=== PATIENT | female | born 1995 | race Caucasian/White ===

== ENCOUNTER 2019-06-05 00:39 | Inpatient (IN) | payer MEDICAID ==
[2019-06-05] MEDS ORDERED: Carboprost Tromethamine 250 MCG/1 ML Amp IM PRN (15:45)
[2019-06-05] MEDS ORDERED: Nalbuphine 10 MG/1 ML Vial IVPUSH PRN (15:45)
[2019-06-05] MEDS ORDERED: Sodium Chloride 0.9% 10 ML Syringe FLUSH PRN (15:45)
[2019-06-05] MEDS ORDERED: Lactated Ringers 1,000 ML IV SCH (15:45)
[2019-06-05] MEDS ORDERED: Sodium Chloride 0.9% 10 ML SDV IV PRN (15:45)
[2019-06-05] MEDS ORDERED: Tranexamic Acid 1,000 MG in Sodium Chloride 0.9% 100 ML IV PRN (15:45)
[2019-06-05] MEDS ORDERED: Sodium Chloride 0.9% 2.5 ML Syringe FLUSH PRN (15:45)
[2019-06-05] MEDS ORDERED: Water For Irrigation,Sterile 1,000 ML Container IRR PRN (15:45)
[2019-06-05] MEDS ORDERED: Methylergonovine 0.2 MG/1 ML Amp IM PRN (15:45)
[2019-06-05] MEDS ORDERED: Lidocaine 1% 50 ML MDV INJECT PRN (15:45)
[2019-06-05] MEDS ORDERED: Misoprostol 200 MCG Tab PO PRN (15:45)
[2019-06-05] MEDS ORDERED: Terbutaline 1 MG/ML SDV SUBCUT PRN (15:45)
[2019-06-05] MEDS ORDERED: Oxytocin/0.9 % Sodium Chloride 30 UNIT/500 ML BAG IV SCH ×2 (15:45)
[2019-06-05] MEDS ORDERED: Butorphanol 1 MG/ML SDV IVPUSH PRN (15:45)
--- NOTE | 2019-06-05 15:56 | PCM.LDHP ---
L&D History of Present Illness - General Date of Service: 06/05/19 Admit Problem/Dx: Admission Diagnosis/Problem Admission Diagnosis/Problem 06/05/19 15:53 23yo EDC 06/12/2019 39 0/7wks O+, RI, GBS neg. IOL for term elective. Source of Information: Patient History Limitations: Reports: No Limitations - History of Present Illness Improves with: Reports: None Worsens with: Reports: None Associated Symptoms: Reports: N - Related Data Allergies/Adverse Reactions: Allergies Allergy/AdvReac Type Severity Reaction Status Date / Time morphine Allergy Difficulty Verified 05/22/19 11:02 Breathing Penicillins Allergy Other Verified 05/22/19 11:02 Sulfa (Sulfonamide Allergy Difficulty Verified 05/22/19 11:02 Antibiotics) Breathing Home Medications: Home Meds Acetaminophen [Tylenol Extra Strength] 1,000 mg PO Q6H PRN 05/22/19 [History] H&P Review of Systems - Review of Systems: Review Of Systems: See Below General: Reports: No Symptoms HEENT: Reports: No Symptoms Pulmonary: Reports: No Symptoms Cardiovascular: Reports: No Symptoms Gastrointestinal: Reports: No Symptoms Genitourinary: Reports: No Symptoms Musculoskeletal: Reports: No Symptoms Skin: Reports: No Symptoms Psychiatric: Reports: No Symptoms Neurological: Reports: No Symptoms Hematologic/Lymphatic: Reports: No Symptoms Immunologic: Reports: No Symptoms L&D Exam - Exam Exam: See Below - Vital Signs Weight: 87.997 kg - OB Specific Contraction Intensity: Mild Movement: Active Heart Tones: Present Heart Tones per Min: 145 Heart Rate (FHR) Variability: Moderate (6-25 bmp) Presentation: Vertex - Boggs Score Boggs Score Cervix Position: Posterior Boggs Score Consistency: Soft Boggs Score Effacement: 31-50% Boggs Score Dilation: 1-2 cm Boggs Score 's Station: -3 Boggs Score Total: 4 - Exam General: Alert, Oriented, Cooperative HEENT: Hearing Intact Lungs: Clear to Auscultation, Normal Respiratory Effort Cardiovascular: Regular Rate, Regular Rhythm GI/Abdominal Exam: Soft, Non-Tender Rectal Exam: Deferred Genitourinary: No: Cervical fluid, Vaginal bleeding Back Exam: Normal Inspection, Full Range of Motion Extremities: Normal Inspection, Normal Range of Motion, Non-Tender, No Pedal Edema, Normal Capillary Refill Skin: Warm, Dry, Intact Neurological: Cranial Nerves Intact, Normal Gait, Normal Speech, Normal Tone Psychiatric: Alert, Normal Affect, Normal Mood - Problem List (1) Supervision of normal IUP (intrauterine ) in multigravida SNOMED Code(s): 948060214, 662254019, 285691249 ICD Code: Z34.80 - ENCOUNTER FOR SUPRVSN OF NORMAL , UNSP TRIMESTER Status: Acute Priority: High Current Visit: Yes Qualifiers: Trimester: third trimester Qualified Code(s): Z34.83 - Encounter for supervision of other normal , third trimester Problem List Initiated/Reviewed/Updated: Yes Assessment/Plan Comment:: IOL A: 23yo EDC 06/12/2019 39 0/7wks O+, RI, GBS neg. IOL for term elective. P: Admit, cytotec to pitocin, epidural and/or pain meds prn, anticipate . Dr Deluca updated
[2019-06-05] MEDS: Misoprostol 25 MCG (1/4 of 100 MCG) Tab PO PRN ×2 (17:31→21:41)
[2019-06-05] MEDS: Misoprostol 25 MCG (1/4 of 100 MCG) Tab VAG PRN ×2 (17:31→21:40)
[2019-06-06] MEDS ORDERED: Bisacodyl 10 MG Supp RECTAL PRN (01:01)
[2019-06-06] MEDS ORDERED: Benzocaine/Menthol 20%-0.5% Spray 78 GM Cannister TOP PRN (01:01)
[2019-06-06] MEDS ORDERED: Ibuprofen 400 MG Tab PO PRN (01:01)
[2019-06-06] MEDS ORDERED: Lanolin 100% Cream 7 GM Tube TOP PRN (01:01)
[2019-06-06] MEDS ORDERED: Witch Hazel Medicated Pads 40/Jar TOP PRN (01:01)
[2019-06-06] MEDS ORDERED: Acetaminophen 500 MG Tab PO PRN (01:01)
[2019-06-06] MEDS ORDERED: Docusate Sodium 100 MG Cap PO PRN (01:01)
--- NOTE | 2019-06-06 01:16 | PCM.DEL ---
L & D Note - General Info Date of Service: 06/06/19 Mother's Due Date: 06/12/19 - Delivery Note Labor: Spontaneous Cervical Ripening Method: Misoprostil Delivery Outcome: Livebirth Delivery Method: Spontaneous Vaginal Delivery-Single Infant Delivery Mode: Spontaneous Presentation: Vertex Nuchal Cord: None Anesthesia Type: None Episiotomy Type: None Laceration: 1st Degree, Perineal Suture type: Vicryl Suture size: 3-0 Placenta: Intact, Spontaneous Cord: 3 Vessels Estimated Blood Loss: 100 Resuscitation Needed: No Score 1 min: 6 Score 5 min: 8 Second Stage Interventions: Reports: Pushing Effectively Delivery Comments (Free Text/Narrative):: of viable female, head delivered with right hand/arm with good pushing, shoulders and body followed easily. with spont cry placed on mothers abdomen with RN at bs. Delayed cord clamping. Pitocin to IVF. Cord clamped and cut but FOB. Cord blood collected. Placenta delivered grossly intact. Inspection noted 1st deg lac. Repaired with 3-0 katherine, hemostasis obtained. EBL 100cc, APGARS 6/8 Wt: 8lb 7oz. Bonding well in recovery. Stable Induction Criteria - Boggs Score Boggs Score Dilation: 1-2 cm Boggs Score Effacement: 40-50% Boggs Score 's Station: -3 Boggs Score Consistency: Medium Boggs Score Cervix Position: Posterior Boggs Score Total: 3 Boggs Score Presenting Part: Reports: Cephalic - Induction Gestational Age >/= 39 wks: Yes Estimated Pelvis: Reports: Adequate Reassuring Monitoring Strip: Yes Absence of Tachy Systole: Yes - General Info Date of Service: 06/06/19 Admission Dx/Problem (Free Text): Admission Diagnosis/Problem Admission Diagnosis/Problem 06/05/19 15:53 23yo EDC 06/12/2019 39 0/7wks O+, RI, GBS neg. IOL for term elective. Functional Status: Reports: Pain Controlled, Tolerating Diet, Ambulating, Urinating - Review of Systems General: Reports: No Symptoms HEENT: Reports: No Symptoms Pulmonary: Reports: No Symptoms Cardiovascular: Reports: No Symptoms Gastrointestinal: Reports: No Symptoms Genitourinary: Reports: No Symptoms Musculoskeletal: Reports: No Symptoms Skin: Reports: No Symptoms Neurological: Reports: No Symptoms Psychiatric: Reports: No Symptoms - Patient Data Weight - Most Recent: 87.997 kg Lab Results Last 24 Hours: Laboratory Results - last 24 hr 06/05/19 06/05/19 Range/Units 17:20 18:35 WBC 8.21 (4.0-11.0) K/uL RBC 4.03 L (4.30-5.90) M/uL Hgb 9.8 L (12.0-16.0) g/dL Hct 32.2 L (36.0-46.0) % MCV 79.9 L (80.0-98.0) fL MCH 24.3 L (27.0-32.0) pg MCHC 30.4 L (31.0-37.0) g/dL RDW Std Deviation 48.8 (28.0-62.0) fl RDW Coeff of [place] 17 H (11.0-15.0) % Plt Count 92 L (150-400) K/uL MPV 11.00 (7.40-12.00) fL Nucleated RBC % 0.0 /100WBC Nucleated RBCs # 0 K/uL Blood Type O POSITIVE Antibody Screen NEGATIVE Med Orders - Current: Current Medications Acetaminophen (Tylenol Extra Strength) 500 mg PO Q4H PRN PRN Reason: Pain Acetaminophen (Tylenol Extra Strength) 1,000 mg PO Q4H PRN PRN Reason: Pain Benzocaine/Menthol (Dermoplast Pain Relief 20%-0.5% [place]) 78 gm TOP ASDIRECTED PRN PRN Reason: Perineal Comfort Measure Bisacodyl (Dulcolax) 10 mg RECTAL ONETIME PRN PRN Reason: Constipation Docusate Sodium (Colace) 100 mg PO BID PRN PRN Reason: Constipation Emollient Ointment (Lansinoh Hpa) 0 gm TOP ASDIRECTED PRN PRN Reason: Sore Nipples Ibuprofen (Motrin) 400 mg PO Q4H PRN PRN Reason: Pain Ibuprofen (Motrin) 800 mg PO Q6H PRN PRN Reason: Pain Witch Dorys (Tucks) 1 pad TOP ASDIRECTED PRN PRN Reason: comfort care Discontinued Medications Butorphanol Tartrate (Stadol) 1 mg IVPUSH Q1H PRN PRN Reason: Pain Carboprost Tromethamine (Hemabate Ds) 250 mcg IM ASDIRECTED PRN PRN Reason: Post Hemorrhage Lactated Ringer's (Ringers, Lactated) 1,000 mls @ 150 mls/hr IV ASDIRECTED YECENIA Oxytocin/Sodium Chloride (Oxytocin 30 Unit/500 Ml-Ns) 30 unit in 500 mls @ 250 mls/hr IV TITRATE YECENIA Oxytocin/Sodium Chloride (Oxytocin 30 Unit/500 Ml-Ns) 30 unit in 500 mls @ 2 mls/hr IV TITRATE YECENIA; Protocol Tranexamic Acid 1,000 mg/ (Sodium Chloride) 110 mls @ 660 mls/hr IV ONETIME PRN PRN Reason: Bleeding Lidocaine HCl (Xylocaine 1%) 50 ml INJECT ONETIME PRN PRN Reason: Laceration repair Methylergonovine Maleate (Methergine) 0.2 mg IM ASDIRECTED PRN PRN Reason: Post Hemorrhage Misoprostol (Cytotec) 200 mcg PO ONETIME PRN PRN Reason: Post Hemorrhage Misoprostol (Cytotec) 25 mcg VAG Q4H PRN PRN Reason: Cervical Ripening Last Admin: 06/05/19 21:40 Dose: 25 mcg Misoprostol (Cytotec) 25 mcg PO Q4H PRN PRN Reason: Cervical Ripening Last Admin: 06/05/19 21:41 Dose: 25 mcg Nalbuphine HCl (Nubain) 10 mg IVPUSH Q1H PRN PRN Reason: Pain (severe 7-10) Sodium Chloride (Saline Flush) 10 ml FLUSH ASDIRECTED PRN PRN Reason: Keep Vein Open Sodium Chloride (Saline Flush) 2.5 ml FLUSH ASDIRECTED PRN PRN Reason: Keep Vein Open Sodium Chloride (Normal Saline) 10 ml IV ASDIRECTED PRN PRN Reason: IV Use Sterile Water (Sterile Water For Irrigation) 1,000 ml IRR ASDIRECTED PRN PRN Reason: delivery Terbutaline Sulfate (Brethine) 0.25 mg SUBCUT ASDIRECTED PRN PRN Reason: Tacysystole - Exam General: Alert, Oriented, Cooperative, No Acute Distress Lungs: Normal Respiratory Effort GI/Abdominal Exam: Soft, Non-Tender (Female) Exam: Normal External Exam, Normal Bimanual Exam, Vaginal Bleeding, Vaginal Tears. No: Cervical Lesions Back Exam: Full Range of Motion Extremities: Normal Inspection, Normal Range of Motion, Non-Tender, No Pedal Edema Skin: Warm, Dry, Intact Neurological: No New Focal Deficit, Normal Speech, Normal Tone, Strength Equal Bilateral, Reflexes Equal Bilateral Psy/Mental Status: Alert, Normal Affect, Normal Mood - Problem List & Annotations (1) Supervision of normal IUP (intrauterine ) in multigravida SNOMED Code(s): 001174112, 452271367, 507412155 Code(s): Z34.80 - ENCOUNTER FOR SUPRVSN OF NORMAL , UNSP TRIMESTER Status: Acute Priority: High Current Visit: Yes Qualifiers: Trimester: third trimester Qualified Code(s): Z34.83 - Encounter for supervision of other normal , third trimester (2) (normal spontaneous vaginal delivery) SNOMED Code(s): 80394553, 640570109 Code(s): O80 - ENCOUNTER FOR FULL-TERM UNCOMPLICATED DELIVERY Status: Acute Priority: High Current Visit: Yes - Problem List Review Problem List Initiated/Reviewed/Updated: Yes - My Orders Last 24 Hours: My Active Orders 06/06/19 01:01 May Shower [RC] ASDIRECTED Up ad Pita [RC] ASDIRECTED Vital Signs [RC] PER UNIT ROUTINE Acetaminophen [Tylenol Extra Strength] 1,000 mg PO Q4H PRN Acetaminophen [Tylenol Extra Strength] 500 mg PO Q4H PRN Benzocaine/Menthol [Dermoplast Pain Relief 20%-0.5% [place]] 78 gm TOP ASDIRECTED PRN Docusate Sodium [Colace] 100 mg PO BID PRN Ibuprofen [Motrin] 400 mg PO Q4H PRN Ibuprofen [Motrin] 800 mg PO Q6H PRN Lanolin [Lansinoh HPA] See Dose Instructions TOP ASDIRECTED PRN bisacodyL [Dulcolax] 10 mg RECTAL ONETIME PRN witch Dorys [Tucks] 1 pad TOP ASDIRECTED PRN Assess Lochia [WOMSER] Per Unit Routine Assess Uterine Involution [WOMSER] Per Unit Routine Peripheral IV Discontinue [OM.PC] Routine Resuscitation Status Routine 06/06/19 05:11 CBC WITH AUTO DIFF [HEME] AM 06/06/19 Breakfast Regular Diet [DIET] - Plan Plan:: IOL A: 23yo EDC 06/12/2019 39 0/7wks O+, RI, GBS neg. IOL for term elective. P: Admit, cytotec to pitocin, epidural and/or pain meds prn, anticipate . Dr Deluca updated Delivery A: of viable female, APGARS 6/8, Wt: 8lb 7oz. EBL 100cc, 1st lac w/repair. Stable P: Routine pp plan of care
[2019-06-06] MEDS: Ibuprofen 800 MG Tab PO PRN ×3 (01:24→20:11)
[2019-06-06] MEDS: Acetaminophen 500 MG Tab PO PRN ×2 (05:23→16:58)
[2019-06-07] MEDS: Ibuprofen 800 MG Tab PO PRN (04:53)
--- NOTE | 2019-06-07 08:44 | PCM.DCSUM1 ---
Discharge Summary - Hospital Course Free Text/Narrative:: Discharge home with baby. Follow up in 6 weeks for routine exam. Diagnosis: Stroke: No Modified [place] Scale: No Symptoms at All Modified [place] Scale Score: 0 - Discharge Data Discharge Date: 06/07/19 Discharge Disposition: Home, Self-Care 01 Condition: Good - Referral to Home Health Primary Care Physician: PCP None - Discharge Diagnosis/Problem(s) (1) (normal spontaneous vaginal delivery) SNOMED Code(s): 68084713, 016443260 ICD Code: O80 - ENCOUNTER FOR FULL-TERM UNCOMPLICATED DELIVERY Status: Acute Priority: High Current Visit: Yes - Patient Instructions Diet: Regular Diet as Tolerated, Drink 8-10+ Glasses/Day Activity: As Tolerated, No Strenuous Activities, Rest and Relax Today Driving: May Drive Today Showering/Bathing: May Shower Notify Provider of: Fever, Increased Pain, Swelling and Redness, Drainage, Nausea and/or Vomiting - Discharge Plan *PRESCRIPTION DRUG MONITORING PROGRAM REVIEWED*: Not Applicable *COPY OF PRESCRIPTION DRUG MONITORING REPORT IN PATIENT MICHELLE: Not Applicable Prescriptions/Med Rec: Ibuprofen [Motrin] 800 mg PO Q6H PRN #90 tablet PRN Reason: Pain Home Medications: Home Meds Acetaminophen [Tylenol Extra Strength] 1,000 mg PO Q6H PRN 05/22/19 [History] Ibuprofen [Motrin] 800 mg PO Q6H PRN #90 tablet 06/07/19 [Rx] Oxygen Therapy Mode: Room Air Referrals: [facility] [Outside] Moises Deluca MD [Physician] - 07/18/19 1:30 pm - Discharge Summary/Plan Comment DC Time >30 min.: Yes - General Info Date of Service: 06/07/19 Admission Dx/Problem (Free Text: Admission Diagnosis/Problem Admission Diagnosis/Problem 06/05/19 15:53 23yo EDC 06/12/2019 39 0/7wks O+, RI, GBS neg. IOL for term elective. Functional Status: Reports: Pain Controlled - Review of Systems General: Reports: No Symptoms HEENT: Reports: No Symptoms Pulmonary: Reports: No Symptoms Cardiovascular: Reports: No Symptoms Gastrointestinal: Reports: No Symptoms Genitourinary: Reports: No Symptoms Musculoskeletal: Reports: No Symptoms Skin: Reports: No Symptoms Neurological: Reports: No Symptoms Psychiatric: Reports: No Symptoms - Patient Data Vitals - Most Recent: Last Vital Signs Temp 97.7 F 06/07/19 07:33 Pulse 68 06/07/19 07:33 Resp 18 06/07/19 07:33 BP 130/88 06/07/19 07:33 Pulse Ox 97 06/07/19 07:33 Weight - Most Recent: 194 lb Med Orders - Current: Current Medications Acetaminophen (Tylenol Extra Strength) 500 mg PO Q4H PRN PRN Reason: Pain Acetaminophen (Tylenol Extra Strength) 1,000 mg PO Q4H PRN PRN Reason: Pain Last Admin: 06/06/19 16:58 Dose: 1,000 mg Benzocaine/Menthol (Dermoplast Pain Relief 20%-0.5% [place]) 78 gm TOP ASDIRECTED PRN PRN Reason: Perineal Comfort Measure Last Admin: 06/06/19 01:27 Dose: 1 applic Bisacodyl (Dulcolax) 10 mg RECTAL ONETIME PRN PRN Reason: Constipation Docusate Sodium (Colace) 100 mg PO BID PRN PRN Reason: Constipation Last Admin: 06/06/19 12:11 Dose: 100 mg Emollient Ointment (Lansinoh Hpa) 0 gm TOP ASDIRECTED PRN PRN Reason: Sore Nipples Last Admin: 06/06/19 01:25 Dose: 1 applic Ibuprofen (Motrin) 400 mg PO Q4H PRN PRN Reason: Pain Ibuprofen (Motrin) 800 mg PO Q6H PRN PRN Reason: Pain Last Admin: 06/07/19 04:53 Dose: 800 mg Witch Dorys (Tucks) 1 pad TOP ASDIRECTED PRN PRN Reason: comfort care Last Admin: 06/06/19 01:26 Dose: 1 applic Discontinued Medications Butorphanol Tartrate (Stadol) 1 mg IVPUSH Q1H PRN PRN Reason: Pain Carboprost Tromethamine (Hemabate Ds) 250 mcg IM ASDIRECTED PRN PRN Reason: Post Hemorrhage Lactated Ringer's (Ringers, Lactated) 1,000 mls @ 150 mls/hr IV ASDIRECTED YECENIA Oxytocin/Sodium Chloride (Oxytocin 30 Unit/500 Ml-Ns) 30 unit in 500 mls @ 250 mls/hr IV TITRATE YECENIA Last Admin: 06/06/19 01:20 Dose: 250 mls/hr Oxytocin/Sodium Chloride (Oxytocin 30 Unit/500 Ml-Ns) 30 unit in 500 mls @ 2 mls/hr IV TITRATE YECENIA; Protocol Tranexamic Acid 1,000 mg/ (Sodium Chloride) 110 mls @ 660 mls/hr IV ONETIME PRN PRN Reason: Bleeding Lidocaine HCl (Xylocaine 1%) 50 ml INJECT ONETIME PRN PRN Reason: Laceration repair Last Admin: 06/06/19 01:20 Dose: 50 ml Methylergonovine Maleate (Methergine) 0.2 mg IM ASDIRECTED PRN PRN Reason: Post Hemorrhage Misoprostol (Cytotec) 200 mcg PO ONETIME PRN PRN Reason: Post Hemorrhage Misoprostol (Cytotec) 25 mcg VAG Q4H PRN PRN Reason: Cervical Ripening Last Admin: 06/05/19 21:40 Dose: 25 mcg Misoprostol (Cytotec) 25 mcg PO Q4H PRN PRN Reason: Cervical Ripening Last Admin: 06/05/19 21:41 Dose: 25 mcg Nalbuphine HCl (Nubain) 10 mg IVPUSH Q1H PRN PRN Reason: Pain (severe 7-10) Sodium Chloride (Saline Flush) 10 ml FLUSH ASDIRECTED PRN PRN Reason: Keep Vein Open Sodium Chloride (Saline Flush) 2.5 ml FLUSH ASDIRECTED PRN PRN Reason: Keep Vein Open Sodium Chloride (Normal Saline) 10 ml IV ASDIRECTED PRN PRN Reason: IV Use Sterile Water (Sterile Water For Irrigation) 1,000 ml IRR ASDIRECTED PRN PRN Reason: delivery Terbutaline Sulfate (Brethine) 0.25 mg SUBCUT ASDIRECTED PRN PRN Reason: Tacysystole - Exam General: Reports: Alert, Oriented, Cooperative, No Acute Distress Lungs: Reports: Normal Respiratory Effort GI/Abdominal Exam: Soft, Non-Tender (Female) Exam: Deferred Rectal (Female) Exam: Deferred Back Exam: Reports: Normal Inspection, Full Range of Motion Extremities: Normal Inspection, Normal Range of Motion, Non-Tender, Normal Capillary Refill Skin: Reports: Warm, Dry, Intact Neurological: Reports: No New Focal Deficit, Normal Gait, Normal Speech, Normal Tone, Strength Equal Bilateral, Sensation Intact Psy/Mental Status: Reports: Alert, Normal Affect, Normal Mood
== END 2019-06-07 11:47 | disposition home or self-care (01) | DRG 807 ==
LOC: MW.OB 00:39 → OBSVTOIN 06-06 00:39 → MW.OB 06-06 05:12
PROVIDERS: ADMIT Obstetrics & Gynecology; ATTEND Obstetrics & Gynecology
PROC: 10E0XZZ Delivery of Products of Conception, External Approach (ICD-10-PCS; principal; 2019-06-06)
PROC: 3E033VJ Introduction of Other Hormone into Peripheral Vein, Percutaneous Approach (ICD-10-PCS; 2019-06-06)
PROC: 3E0P7VZ Introduction of Hormone into Female Reproductive, Via Natural or Artificial Opening (ICD-10-PCS; 2019-06-06)
DX: O70.0 First degree perineal laceration during delivery (principal); Z37.0 Single live birth; Z3A.39 39 weeks gestation of pregnancy
CPT/HCPCS: 36415; 59025; 59409; 85025; 85027; 86592; 86593; 86850; 86900; 86901; A9270-GY; J2001; J2590

== ENCOUNTER 2019-11-05 18:26 | Emergency (ER) | payer SELFPAY ==
[2019-11-05] MEDS ORDERED: Albuterol/Ipratropium 3.0-0.5 MG/3 ML Neb Soln NEB ONE (19:04)
--- NOTE | 2019-11-05 19:08 | EDM.PDOC ---
ED HPI GENERAL MEDICAL PROBLEM - General Chief Complaint: Respiratory Problem Stated Complaint: ASTHMA ATTACK Time Seen by Provider: 11/05/19 18:49 Source of Information: Reports: Patient History Limitations: Reports: No Limitations - History of Present Illness INITIAL COMMENTS - FREE TEXT/NARRATIVE: HISTORY AND PHYSICAL: History of present illness: She is a 24-year-old female who presents to the ED today with concern for desire to get her albuterol inhaler refilled. Patient states that she had an asthma attack earlier today and does not have an albuterol inhaler available to her any longer and desires a refill of this medication. Patient states that at this time she is not having any symptoms of her asthma but would like to have her inhaler on hand and a refill. Patient denies any other symptoms or concerns. Patient denies fever, chills, chest pain, shortness of breath, or cough. Denies headache, neck stiff ness, change in vision, syncope, or near syncope. Denies nausea, vomiting, abdominal pain, diarrhea, constipation, or dysuria. Has not noted any blood in urine or stool. Patient has been eating and drinking appropriately. Review of systems: As per history of present illness and below otherwise all systems reviewed and negative. Past medical history: As per history of present illness and as reviewed below otherwise noncontributory. Surgical history: As per history of present illness and as reviewed below otherwise noncontributory. Social history: See social history for further information Family history: As per history of present illness and as reviewed below otherwise noncontributory. Physical exam: General: Patient is alert, oriented, and in no acute distress. Patient sitting comfortably on exam table. HEENT: Atraumatic, normocephalic, pupils equal and reactive bilaterally, negative for conjunctival pallor or scleral icterus, mucous membranes moist, TMs normal bilaterally, throat clear, neck supple, nontender, trachea midline. No drooling or trismus noted. No meningeal signs. No hot potato voice noted. Lungs: Mild wheezing to auscultation, breath sounds equal bilaterally, chest nontender. Heart: S1S2, regular rate and rhythm without overt murmur Abdomen: Soft, nondistended, nontender. Negative for masses or hepatosplenomegaly. Negative for costovertebral tenderness. Pelvis: Stable nontender. Genitourinary: Deferred. Rectal: Deferred. Skin: Intact, warm, dry. No lesions or rashes noted. Extremities: Atraumatic, negative for cords or calf pain. Neurovascular unremarkable. Neuro: Awake, alert, oriented. Cranial nerves II through XII unremarkable. Cerebellum unremarkable. Motor and sensory unremarkable throughout. Exam nonfocal. Notes: Discussed importance for follow-up with a primary care provider. Voices understanding and is agreeable to plan of care. Denies any further questions or concerns at this time. Diagnostics: None Therapeutics: None Prescription: Albuterol inhaler Impression: Asthma, mild Plan: 1. Take medication as prescribed. 2. Follow up with a primary care provider as discussed. Return to the ED as needed and as discussed. Definitive disposition and diagnosis as appropriate pending reevaluation and review of above. - Related Data Allergies Allergy/AdvReac Type Severity Reaction Status Date / Time morphine Allergy Difficulty Verified 11/05/19 18:33 Breathing Penicillins Allergy Other Verified 11/05/19 18:33 Sulfa (Sulfonamide Allergy Difficulty Verified 11/05/19 18:33 Antibiotics) Breathing Home Meds: Home Meds Albuterol Sulfate [Proair Hfa] 8.5 gm IH Q8HR PRN #1 [email or web address] 11/05/19 [Rx] Past Medical History Cardiovascular History: Reports: None Respiratory History: Reports: Asthma Other Respiratory History: pt states she used to have an inhaler but doesnt know what it was and hasnt used one in years, only needs it for high intensity work outs. Gastrointestinal History: Reports: None Genitourinary History: Reports: None TWIST TESTER History: Reports: Musculoskeletal History: Reports: None Neurological History: Reports: None Psychiatric History: Reports: Anxiety Endocrine/Metabolic History: Reports: None Hematologic History: Reports: None Immunologic History: Reports: None Oncologic (Cancer) History: Reports: None Dermatologic History: Reports: None - Infectious Disease History Infectious Disease History: Reports: None - Past Surgical History Head Surgeries/Procedures: Reports: None HEENT Surgical History: Reports: Oral Surgery Social & Family History - Family History Family Medical History: Noncontributory Cardiac: Reports: Heart Failure Endocrine/Metabolic: Reports: Diabetes, type II - Tobacco Use Smoking Status *Q: Never Smoker - Caffeine Use Caffeine Use: Reports: Coffee, Soda - Recreational Drug Use Recreational Drug Use: No ED ROS GENERAL - Review of Systems Review Of Systems: Comprehensive ROS is negative, except as noted in HPI. ED EXAM, GENERAL - Physical Exam Exam: See Below (see dictation) Course - Vital Signs Last Recorded V/S: Last Vital Signs Temp 98 F 11/05/19 18:33 Pulse 103 H 11/05/19 18:33 Resp 18 11/05/19 18:33 BP 131/71 11/05/19 18:33 Pulse Ox 99 11/05/19 18:33 - Orders/Labs/Meds Orders: Active Orders 24 hr Category Date Time Status RT Aerosol Therapy [RC] ASDIRECTED Care 11/05/19 19:04 Ordered Albuterol/Ipratropium [DuoNeb 3.0-0.5 MG/3 ML] Med 11/05/19 19:04 Once 3 ml NEB ONETIME ONE Medication Orders Albuterol/Ipratropium (Duoneb 3.0-0.5 Mg/3 Ml) 3 ml NEB ONETIME ONE Stop: 11/05/19 19:05 Meds: Medications Generic Name Dose Route Start Last Admin Trade Name Freq PRN Reason Stop Dose Admin Albuterol/Ipratropium 3 ml 11/05/19 19:04 Duoneb 3.0-0.5 Mg/3 Ml NEB 11/05/19 19:05 ONETIME ONE Departure - Departure Time of Disposition: 19:07 Disposition: Home, Self-Care 01 Clinical Impression: Asthma Qualifiers: Asthma severity: mild Asthma persistence: unspecified Asthma complication type: unspecified Qualified Code(s): J45.909 - Unspecified asthma, uncomplicated - Discharge Information Prescriptions: Albuterol Sulfate [Proair Hfa] 8.5 gm IH Q8HR PRN #1 [email or web address] PRN Reason: Cough Referrals: PCP,None [Primary Care Provider] - Additional Instructions: The following information is given to patients seen in the emergency department who are being discharged to home. This information is to outline your options for follow-up care. We provide all patients seen in our emergency department with a follow-up referral. The need for follow-up, as well as the timing and circumstances, are variable depending upon the specifics of your emergency department visit. If you don't have a primary care physician on staff, we will provide you with a referral. We always advise you to contact your personal physician following an emergency department visit to inform them of the circumstance of the visit and for follow-up with them and/or the need for any referrals to a consulting specia list. The emergency department will also refer you to a specialist when appropriate. This referral assures that you have the opportunity for follow-up care with a specialist. All of these measure are taken in an effort to provide you with optimal care, which includes your follow-up. Under all circumstances we always encourage you to contact your private physician who remains a resource for coordinating your care. When calling for follow-up care, please make the office aware that this follow-up is from your recent emergency room visit. If for any reason you are refused follow-up, please contact the [facility] Emergency Department at and asked to speak to the emergency department charge nurse. [facility] [address] [place] [address] [place] [address] 1. Take medication as prescribed. 2. Follow up with a primary care provider as discussed. Return to the ED as needed and as discussed. Sepsis Event Note (ED) - Evaluation Sepsis Screening Result: No Definite Risk - Focused Exam Vital Signs: Vital Signs Temp Pulse Resp BP Pulse Ox 11/05/19 18:33 98 F 103 H 18 131/71 99 - My Orders Last 24 Hours: My Active Orders 11/05/19 19:04 RT Aerosol Therapy [RC] ASDIRECTED Albuterol/Ipratropium [DuoNeb 3.0-0.5 MG/3 ML] 3 ml NEB ONETIME ONE - Assessment/Plan Last 24 Hours: My Active Orders 11/05/19 19:04 RT Aerosol Therapy [RC] ASDIRECTED Albuterol/Ipratropium [DuoNeb 3.0-0.5 MG/3 ML] 3 ml NEB ONETIME ONE
== END 2019-11-05 19:25 | disposition home or self-care (01) ==
LOC: MW.ED 18:26
DX: J45.909 Unspecified asthma, uncomplicated (principal); Z88.5 Allergy status to narcotic agent; Z88.0 Allergy status to penicillin; Z88.2 Allergy status to sulfonamides
CPT/HCPCS: 99283

== ENCOUNTER 2020-12-28 20:50 | Emergency (ER) | payer MEDICAID ==
--- NOTE | 2020-12-28 23:37 | EDM.PDOC ---
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 She was outside walking with a basket which he tripped forward landing on her belly. She denies any abdominal pain does not have any vaginal bleeding or discharge her wanted to come in and get checked that she is earlier pregnancies. She states she feels well and has no complaints at the moment. - Related Data Allergies Allergy/AdvReac Type Severity Reaction Status Date / Time morphine Allergy Difficulty Verified 12/28/20 22:53 Breathing Penicillins Allergy Other Verified 12/28/20 22:53 Sulfa (Sulfonamide Allergy Difficulty Verified 12/28/20 22:53 Antibiotics) Breathing Home Meds: Home Meds Albuterol Sulfate [Proair Hfa] 8.5 gm IH Q8HR PRN #1 [email or web address] 11/05/19 [Rx] Past Medical History Cardiovascular History: Reports: None Respiratory History: Reports: Asthma Other Respiratory History: pt states she used to have an inhaler but doesnt know what it was and hasnt used one in years, only needs it for high intensity work outs. Gastrointestinal History: Reports: None Genitourinary History: Reports: None CLINICAL PHARMACOLOGIST History: Reports: Musculoskeletal History: Reports: None Neurological History: Reports: None Psychiatric History: Reports: Anxiety Endocrine/Metabolic History: Reports: None Hematologic History: Reports: None Immunologic History: Reports: None Oncologic (Cancer) History: Reports: None Dermatologic History: Reports: None - Infectious Disease History Infectious Disease History: Reports: None - Past Surgical History Head Surgeries/Procedures: Reports: None HEENT Surgical History: Reports: Oral Surgery Social & Family History - Family History Family Medical History: No Pertinent Family History Cardiac: Reports: Heart Failure Endocrine/Metabolic: Reports: Diabetes, type II - Tobacco Use Tobacco Use Status *Q: Current Every Day Tobacco User Years of Tobacco use: 10 Packs/Tins Daily: 0.5 - Caffeine Use Caffeine Use: Reports: Coffee, Soda - Recreational Drug Use Recreational Drug Use: No ED ROS GENERAL - Review of Systems Review Of Systems: See Below Constitutional: Reports: No Symptoms HEENT: Reports: No Symptoms Respiratory: Reports: No Symptoms Cardiovascular: Reports: No Symptoms Endocrine: Reports: No Symptoms GI/Abdominal: Reports: No Symptoms : Reports: No Symptoms Musculoskeletal: Reports: No Symptoms Skin: Reports: No Symptoms Neurological: Reports: No Symptoms Psychiatric: Reports: No Symptoms Hematologic/Lymphatic: Reports: No Symptoms Immunologic: Reports: No Symptoms ED EXAM - Physical Exam Exam: See Below Exam Limited By: No Limitations General Appearance: Alert, WD/WN, No Apparent Distress Eye Exam: Bilateral Eye: EOMI, PERRL Neck: Normal Inspection Respiratory/Chest: No Respiratory Distress, Lungs Clear, Normal Breath Sounds Cardiovascular: Normal Peripheral Pulses, Regular Rate, Rhythm GI/Abdominal Exam: Normal Bowel Sounds, Soft, Non-Tender Heart Tones: Present Back Exam: Normal Inspection Extremities: Normal Inspection Neurological: Alert, Oriented, Normal Cognition, Normal Gait Course - Vital Signs Last Recorded V/S: Last Vital Signs Temp 97.6 F 12/28/20 22:53 Pulse 115 H 12/28/20 22:53 Resp 18 12/28/20 22:53 BP 140/90 12/28/20 22:53 Pulse Ox 100 12/28/20 22:53 - Orders/Labs/Meds Labs: Laboratory Tests 12/28/20 Range/Units 20:02 Urine Color YELLOW Urine Appearance SLT CLOUDY Urine pH 5.5 (5.0-8.0) Ur Specific Tracy >= 1.030 (1.001-1.035) Urine Protein NEGATIVE (NEGATIVE) mg/dL Urine Glucose (UA) NEGATIVE (NEGATIVE) mg/dL Urine Ketones NEGATIVE (NEGATIVE) mg/dL Urine Occult Blood NEGATIVE (NEGATIVE) Urine Nitrite POSITIVE H (NEGATIVE) Urine Bilirubin NEGATIVE (NEGATIVE) Urine Urobilinogen 0.2 (<2.0) EU/dL Ur Leukocyte Esterase SMALL H (NEGATIVE) Urine RBC 0-2 (0-2/HPF) Urine WBC 15-30 (0-5/HPF) Ur Epithelial Cells FEW (NONE-FEW) Urine Bacteria 2+ H (NEGATIVE) Departure - Departure Time of Disposition: 23:35 Disposition: Home, Self-Care 01 Condition: Good Clinical Impression: with abdominal wall injury, antepartum - Discharge Information *PRESCRIPTION DRUG MONITORING PROGRAM REVIEWED*: Not Applicable *COPY OF PRESCRIPTION DRUG MONITORING REPORT IN PATIENT MICHELLE: Not Applicable Instructions: Blunt Abdominal Trauma Referrals: PCP,None [Primary Care Provider] - Additional Instructions: The following information is given to patients seen in the emergency department who are being discharged to home. This information is to outline your options for follow-up care. We provide all patients seen in our emergency department with a follow-up referral. The need for follow-up, as well as the timing and circumstances, are variable depending upon the specifics of your emergency department visit. If you don't have a primary care physician on staff, we will provide you with a referral. We always advise you to contact your personal physician following an emergency department visit to inform them of the circumstance of the visit and for follow-up with them and/or the need for any referrals to a consulting specialist. The emergency department will also refer you to a specialist when appropriate. This referral assures that you have the opportunity for follow-up care with a specialist. All of these measure are taken in an effort to provide you with optimal care, which includes your follow-up. Under all circumstances we always encourage you to contact your private physician who remains a resource for coordinating your care. When calling for follow-up care, please make the office aware that this follow-up is from your recent emergency room visit. If for any reason you are refused follow-up, please contact the [facility] Emergency Department at and asked to speak to the emergency department charge nurse. Please follow up with your primary care physician. If you do not have a primary care physician, see below: [facility] [address] [place] [id number] [facility] [address] [place] [id number] You were seen today at the you fell and landed on your belly. You had no tenderness over your abdomen on exam. We did ultrasound the bedside we have received the fetus is in the correct block with heart beat as well. Your urine has some bacteria there we will send you home with Macrobid which is safe to take in pregnancies. We recommend you follow-up with your PMD continue taking antibiotics. Sepsis Event Note (ED) - Evaluation Sepsis Screening Result: No Definite Risk - Focused Exam Vital Signs: Vital Signs Temp Pulse Resp BP Pulse Ox 12/28/20 22:53 97.6 F 115 H 18 140/90 100 - Assessment/Plan Plan: Patient is a 25-year-old female presents today after falling as her belly. Patient has no abdominal tenderness on exam no vaginal bleeding or discharge. We did a bedside sono stable to confirm IUP with heart tones. Did not see any signs of any free fluid on ultrasound. Patient will be discharged to follow-up with her BELT BUILDER HELPER the morning.
== END 2020-12-28 23:54 | disposition home or self-care (01) ==
LOC: MW.ED 20:50
DX: O9A.23 Injury, poisoning and certain other consequences of external causes complicating the puerperium (principal); S39.91XA Unspecified injury of abdomen, initial encounter; Z3A.01 Less than 8 weeks gestation of pregnancy; Z72.0 Tobacco use; Z88.5 Allergy status to narcotic agent; Z88.0 Allergy status to penicillin; Z88.2 Allergy status to sulfonamides; W01.0XXA Fall on same level from slipping, tripping and stumbling without subsequent striking against object, initial encounter
CPT/HCPCS: 81001; 99283

== ENCOUNTER 2021-02-14 12:43 | Emergency (ER) | payer MEDICAID ==
--- NOTE | 2021-02-14 15:28 | US ---
INDICATION: cramping. LMP 11/02/2020. COMPARISON: None. TECHNIQUE: Real time blackburn scale imaging of the fetus was performed. FINDINGS: Sonographic imaging demonstrates a single living intrauterine gestation. The fetus has a regular cardiac rate of 150 beats per minute. The fetus has a breech orientation. The placenta lies posteriorly without evidence of placenta previa or abruption. Amniotic fluid volume appears normal. The cervix is closed and measures 3.0 cm in length. The composite ultrasound gestational age is calculated at 15 weeks 2 days with an estimated sonographic due date of 08/06/2021. The estimated weight is 116 grams which lies at the 58th percentile. The following biometric measurements were obtained: Biparietal diameter: 2.95 cm (15 weeks 3 days) Head circumference: 10.88 cm (15 weeks 2 days) Abdominal circumference: 9.11 cm (15 weeks 3 days) Femur length: 1.68 cm (15 weeks 0 days) The HC/AC ratio measures: 1.19 (range 1.14-1.31) IMPRESSION: 1. Single living intrauterine gestation in breech position with heart rate 150 beats per minute. 2. Ultrasound gestational age 15 weeks 2 days with sonographic due date 08/06/2020. The clinical gestational age by LMP is 14 weeks 6 days. 3. No evidence of placental abruption. Dictated by Fe Mccloud MD @ 02/14/2021 3:27:43 PM (Electronically Signed)
--- NOTE | 2021-02-14 16:37 | EDM.PDOC ---
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 Patient is 2-year-old kicked her in her stomach and she started having some cramps. She not have any vaginal bleeding or discharge. States still feels a move she has no nausea vomiting or other complaints is 1 to come to be checked to make sure the baby was okay. - Related Data Allergies Allergy/AdvReac Type Severity Reaction Status Date / Time morphine Allergy Difficulty Verified 02/14/21 15:01 Breathing Penicillins Allergy Other Verified 02/14/21 15:01 Sulfa (Sulfonamide Allergy Difficulty Verified 02/14/21 15:01 Antibiotics) Breathing Home Meds: Home Meds . [No Known Home Meds] 02/14/21 [History] Past Medical History Cardiovascular History: Reports: None Respiratory History: Reports: Asthma Other Respiratory History: pt states she used to have an inhaler but doesnt know what it was and hasnt used one in years, only needs it for high intensity work outs. 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: Musculoskeletal History: Reports: None Neurological History: Reports: None Psychiatric History: Reports: Anxiety Endocrine/Metabolic History: Reports: None Hematologic History: Reports: None Immunologic History: Reports: None Oncologic (Cancer) History: Reports: None Dermatologic History: Reports: None - Infectious Disease History Infectious Disease History: Reports: None - Past Surgical History Head Surgeries/Procedures: Reports: None HEENT Surgical History: Reports: Oral Surgery Social & Family History - Family History Family Medical History: No Pertinent Family History Cardiac: Reports: Heart Failure Endocrine/Metabolic: Reports: Diabetes, type II - Tobacco Use Second Hand Smoke Exposure: No - Caffeine Use Caffeine Use: Reports: None - Recreational Drug Use Recreational Drug Use: No ED ROS GENERAL - Review of Systems Review Of Systems: See Below Constitutional: Reports: No Symptoms HEENT: Reports: No Symptoms Respiratory: Reports: No Symptoms Cardiovascular: Reports: No Symptoms Endocrine: Reports: No Symptoms GI/Abdominal: Reports: Abdominal Pain : Reports: No Symptoms Musculoskeletal: Reports: No Symptoms Skin: Reports: No Symptoms Neurological: Reports: No Symptoms Psychiatric: Reports: No Symptoms Hematologic/Lymphatic: Reports: No Symptoms Immunologic: Reports: No Symptoms ED EXAM - Physical Exam Exam: See Below Exam Limited By: No Limitations General Appearance: Alert, WD/WN, No Apparent Distress Eye Exam: Bilateral Eye: EOMI Nose: Normal Inspection Throat/Mouth: Normal Inspection Head: Atraumatic, Normocephalic Neck: Normal Inspection Respiratory/Chest: No Respiratory Distress, Lungs Clear, Normal Breath Sounds Cardiovascular: Normal Peripheral Pulses, Regular Rate, Rhythm, No Edema GI/Abdominal Exam: Normal Bowel Sounds, Soft, Non-Tender Extremities: Normal Inspection, Normal Range of Motion Neurological: Alert, Oriented, Normal Cognition, Normal Gait Course - Vital Signs Last Recorded V/S: Last Vital Signs Temp 96.8 F L 02/14/21 14:52 Pulse 97 02/14/21 14:52 Resp 20 02/14/21 14:52 BP 126/74 02/14/21 14:52 Pulse Ox 98 02/14/21 14:52 - Orders/Labs/Meds Labs: Laboratory Tests 02/14/21 02/14/21 Range/Units 15:44 15:44 WBC 9.18 (4.0-11.0) K/uL RBC 4.23 L (4.30-5.90) M/uL Hgb 12.8 (12.0-16.0) g/dL Hct 37.5 (36.0-46.0) % MCV 88.7 (80.0-98.0) fL MCH 30.3 (27.0-32.0) pg MCHC 34.1 (31.0-37.0) g/dL RDW Std Deviation 47.3 (28.0-62.0) fl RDW Coeff of Bradford 15 (11.0-15.0) % Plt Count 277 (150-400) K/uL MPV 10.50 (7.40-12.00) fL Neut % (Auto) 73.0 (48.0-80.0) % Lymph % (Auto) 18.7 (16.0-40.0) % [place] % (Auto) 7.7 (0.0-15.0) % Eos % (Auto) 0.5 (0.0-7.0) % Baso % (Auto) 0.1 (0.0-1.5) % Neut # (Auto) 6.7 H (1.4-5.7) K/uL Lymph # (Auto) 1.7 (0.6-2.4) K/uL [place] # (Auto) 0.7 (0.0-0.8) K/uL Eos # (Auto) 0.1 (0.0-0.7) K/uL Baso # (Auto) 0.0 (0.0-0.1) K/uL Nucleated RBC % 0.0 /100WBC Nucleated RBCs # 0 K/uL Sodium 136 (136-145) mmol/L Potassium 3.7 (3.5-5.1) mmol/L Chloride 100 (98-107) mmol/L Carbon Dioxide 22.9 (21.0-32.0) mmol/L BUN 13 (7.0-18.0) mg/dL Creatinine 0.7 (0.6-1.0) mg/dL Est Cr Clr Drug Dosing 120.51 mL/min Estimated GFR (MDRD) > 60.0 ml/min Glucose 88 (74-106) mg/dL Calcium 9.1 (8.5-10.1) mg/dL Total Bilirubin 0.4 (0.2-1.0) mg/dL AST 11 L (15-37) IU/L ALT 19 (14-63) IU/L Alkaline Phosphatase 38 L (46-116) U/L Total Protein 7.8 (6.4-8.2) g/dL Albumin 3.1 L (3.4-5.0) g/dL Globulin 4.7 H (2.6-4.0) g/dL Albumin/Globulin Ratio 0.7 L (0.9-1.6) HCG, Quant 93782.0 mIU/mL Departure - Departure Time of Disposition: 16:36 Disposition: Home, Self-Care 01 Condition: Good Clinical Impression: Cramping affecting , antepartum - Discharge Information *PRESCRIPTION DRUG MONITORING PROGRAM REVIEWED*: Not Applicable *COPY OF PRESCRIPTION DRUG MONITORING REPORT IN PATIENT MICHELLE: Not Applicable Instructions: Abdominal Pain During , [id number] Referrals: Moises Deluca MD [Primary Care Provider] - Forms: ED Department Discharge Additional Instructions: You were seen today for abdominal cramps after being kicked in your belly by your child. We did ultrasound the baby looks well you have no vaginal bleeding discharge if you do have any other additional symptoms please return to ED immediately otherwise follow-up with your PRINT SHOP HELPER physician. The following information is given to patients seen in the emergency department who are being discharged to home. This information is to outline your options for follow-up care. We provide all patients seen in our emergency department with a follow-up referral. The need for follow-up, as well as the timing and circumstances, are variable depending upon the specifics of your emergency department visit. If you don't have a primary care physician on staff, we will provide you with a referral. We always advise you to contact your personal physician following an emergency department visit to inform them of the circumstance of the visit and for follow-up with them and/or the need for any referrals to a consulting specialist. The emergency department will also refer you to a specialist when appropriate. This referral assures that you have the opportunity for follow-up care with a specialist. All of these measure are taken in an effort to provide you with optimal care, which includes your follow-up. Under all circumstances we always encourage you to contact your private physician who remains a resource for coordinating your care. When calling for follow-up care, please make the office aware that this follow-up is from your recent emergency room visit. If for any reason you are refused follow-up, please contact the [facility] Emergency Department at and asked to speak to the emergency department charge nurse. Please follow up with your primary care physician. If you do not have a primary care physician, see below: [facility] [address] [place] [id number] [facility] [address] [place] [id number] Sepsis Event Note (ED) - Evaluation Sepsis Screening Result: No Definite Risk - Focused Exam Vital Signs: Vital Signs Temp Pulse Resp BP Pulse Ox 02/14/21 14:52 96.8 F L 97 20 126/74 98 - Assessment/Plan Plan: Patient is a 25-year-old female presents today for abdominal cramping to be taken the belly. Patient ultrasound shows IUP with heart rate of 150. Patient is has no abdominal cramps. We will send basic labs and likely discharge to follow-up with PMD.
[2021-02-14 16:52] LABS: BLOOD UREA NITROGEN,BUN 13 mg/dL (7.0-18.0); CARBON DIOXIDE,CO2 22.9 mmol/L (21.0-32.0); CHLORIDE,CL 100 mmol/L (98-107); GLUCOSE RANDOM 88 mg/dL (74-106); POTASSIUM,K 3.7 mmol/L (3.5-5.1); SODIUM,NA 136 mmol/L (136-145)
== END 2021-02-14 17:15 | disposition home or self-care (01) ==
LOC: MW.ED 12:43
DX: O99.891 Other specified diseases and conditions complicating pregnancy (principal); R10.9 Unspecified abdominal pain; Z3A.15 15 weeks gestation of pregnancy; Z88.0 Allergy status to penicillin; Z88.5 Allergy status to narcotic agent; Z88.2 Allergy status to sulfonamides
CPT/HCPCS: 36415; 76801; 76801-26; 80053; 84702; 85025; 99284-25

== ENCOUNTER 2021-02-19 15:54 | Emergency (ER) | payer MEDICAID ==
--- NOTE | 2021-02-19 16:42 | EDM.PDOC ---
ED HPI GENERAL MEDICAL PROBLEM - General Chief Complaint: Back Pain or Injury Stated Complaint: CONCERNED ABOUT BABY Time Seen by Provider: 02/19/21 16:02 Source of Information: Reports: Patient History Limitations: Reports: No Limitations - History of Present Illness INITIAL COMMENTS - FREE TEXT/NARRATIVE: HISTORY AND PHYSICAL: History of present illness: Patient is a 25-year-old female who presents emergency room today with wanting to check on her and states that she is 15 weeks in gestation. Patient states she does follow with Dr. Deluca and has had a routine care thus far with no complications. Patient denies any lower abdominal cramping, change in vaginal discharge or vaginal bleeding. Patient states that earlier today she was moving a mattress that was on the floor and states that she was temporarily pinned between the mattress on the wall. Patient states that she did not sustain any direct trauma or injury but felt overly anxious that she had harmed her baby by being pinned up against the mattress on the wall for a short period of time. Patient states that this was just several minutes and she otherwise feels well and has no symptoms. Patient denies fever, chills, chest pain, shortness of breath, or cough. Denies headache, neck stiff ness, change in vision, syncope, or near syncope. Denies nausea, vomiting, abdominal pain, diarrhea, constipation, or dysuria. Has not noted any blood in urine or stool. Patient has been eating and drinking appropriately. Review of systems: As per history of present illness and below otherwise all systems reviewed and negative. Past medical history: As per history of present illness and as reviewed below otherwise noncontributory. Surgical history: As per history of present illness and as reviewed below otherwise noncontributory. Social history: See social history for further information Family history: As per history of present illness and as reviewed below otherwise noncontr ibutory. Physical exam: General: Patient is alert, oriented, and in no acute distress. Patient sitting comfortably on exam table. Vitals stable and reviewed by me. HEENT: Atraumatic, normocephalic, pupils equal and reactive bilaterally, negative for conjunctival pallor or scleral icterus, mucous membranes moist, throat clear, neck supple, nontender, trachea midline. No drooling or trismus noted. No meningeal signs. No hot potato voice noted. Lungs: Clear to auscultation, breath sounds equal bilaterally, chest nontender. Heart: S1S2, regular rate and rhythm without overt murmur Abdomen: Soft, nondistended, nontender. Negative for masses or hepatosplenomegaly. Negative for costovertebral tenderness. Pelvis: Stable nontender. Genitourinary: Deferred. Rectal: Deferred. Skin: Intact, warm, dry. No lesions or rashes noted. Extremities: Atraumatic, negative for cords or calf pain. Neurovascular unremarkable. Neuro: Awake, alert, oriented. Cranial nerves II through XII unremarkable. Cerebellum unremarkable. Motor and sensory unremarkable throughout. Exam nonfocal. Medical Decision Making: Patient is a 25-year-old female who presents emergency room today with concern of desire to check on her as she is 15 weeks gestation. Patient states earlier today she was temporarily pinned between a mattress and the wall and was immediately concerned about the health of her fetus. Patient is not having any symptoms, abdominal cramping, or change in vaginal discharge or vaginal bleeding but "just wanted to check on baby ". heart tones at bedside are 153. Signs and symptoms that were prompt return to the ED thoroughly discussed with patient. Discussed importance for follow-up with her MANAGER ADMINISTRATION provider. Voices understanding and is agreeable to plan of care. Denies any further questions or concerns at this time. Diagnostics: [employer]: None Prescription: None Impression: Medical screening exam Plan: 1. Follow-up with your MANAGER ADMINISTRATION provider as discussed. Return to the ED as needed and as discussed. Definitive disposition and diagnosis as appropriate pending reevaluation and review of above. Back Pain Score (Numeric/FACES): 3 - Related Data Allergies Allergy/AdvReac Type Severity Reaction Status Date / Time morphine Allergy Difficulty Verified 02/19/21 16:17 Breathing Penicillins Allergy Other Verified 02/19/21 16:17 Sulfa (Sulfonamide Allergy Difficulty Verified 02/19/21 16:17 Antibiotics) Breathing Home Meds: Home Meds . [No Known Home Meds] 02/14/21 [History] Past Medical History Cardiovascular History: Reports: None Respiratory History: Reports: Asthma Other Respiratory History: pt states she used to have an inhaler but doesnt know what it was and hasnt used one in years, only needs it for high intensity work outs. Gastrointestinal History: Reports: None Genitourinary History: Reports: None MANAGER ADMINISTRATION History: Reports: Musculoskeletal History: Reports: None Neurological History: Reports: None Psychiatric History: Reports: Anxiety Endocrine/Metabolic History: Reports: None Hematologic History: Reports: None Immunologic History: Reports: None Oncologic (Cancer) History: Reports: None Dermatologic History: Reports: None - Infectious Disease History Infectious Disease History: Reports: None - Past Surgical History Head Surgeries/Procedures: Reports: None HEENT Surgical History: Reports: Oral Surgery Social & Family History - Family History Family Medical History: No Pertinent Family History Cardiac: Reports: Heart Failure Endocrine/Metabolic: Reports: Diabetes, type II - Tobacco Use Tobacco Use Status *Q: Current Every Day Tobacco User Years of Tobacco use: 8 Packs/Tins Daily: 0.2 - Caffeine Use Caffeine Use: Reports: Coffee, Soda - Recreational Drug Use Recreational Drug Use: No ED ROS GENERAL - Review of Systems Review Of Systems: Comprehensive ROS is negative, except as noted in HPI. ED EXAM, GENERAL - Physical Exam Exam: See Below (see dictation) Course - Vital Signs Last Recorded V/S: Last Vital Signs Temp 96.4 F L 02/19/21 16:17 Pulse 92 02/19/21 16:17 Resp 16 02/19/21 16:17 BP 123/81 02/19/21 16:17 Pulse Ox 96 02/19/21 16:17 Departure - Departure Time of Disposition: 16:41 Disposition: Home, Self-Care 01 Clinical Impression: Encounter for medical screening examination - Discharge Information Forms: ED Department Discharge Additional Instructions: The following information is given to patients seen in the emergency department who are being discharged to home. This information is to outline your options for follow-up care. We provide all patients seen in our emergency department with a follow-up referral. The need for follow-up, as well as the timing and circumstances, are variable depending upon the specifics of your emergency department visit. If you don't have a primary care physician on staff, we will provide you with a referral. We always advise you to contact your personal physician following an emergency department visit to inform them of the circumstance of the visit and for follow-up with them and/or the need for any referrals to a consulting specialist. The emergency department will also refer you to a specialist when appropriate. This referral assures that you have the opportunity for follow-up care with a specialist. All of these measure are taken in an effort to provide you with optimal care, which includes your follow-up. Under all circumstances we always encourage you to contact your private physician who remains a resource for coordinating your care. When calling for follow-up care, please make the office aware that this follow-up is from your recent emergency room visit. If for any reason you are refused follow-up, please contact the [facility] Emergency Department at and asked to speak to the emergency department charge nurse. [address] [address] 1. Follow-up with your MANAGER ADMINISTRATION provider as discussed. Return to the ED as needed and as discussed. Sepsis Event Note (ED) - Evaluation Sepsis Screening Result: No Definite Risk - Focused Exam Vital Signs: Vital Signs Temp Pulse Resp BP Pulse Ox 02/19/21 16:17 96.4 F L 92 16 123/81 96
== END 2021-02-19 16:51 | disposition home or self-care (01) ==
LOC: MW.ED 15:54
DX: O99.891 Other specified diseases and conditions complicating pregnancy (principal); Z3A.15 15 weeks gestation of pregnancy; Z88.5 Allergy status to narcotic agent; Z88.0 Allergy status to penicillin; Z88.2 Allergy status to sulfonamides; Z72.0 Tobacco use
CPT/HCPCS: 99282

== ENCOUNTER 2021-02-27 14:14 | Emergency (ER) | payer MEDICAID ==
--- NOTE | 2021-02-27 14:29 | EDM.PDOC ---
ED HPI GENERAL MEDICAL PROBLEM - General Chief Complaint: Trauma Stated Complaint: 16 WKS SLIPPED ON ICE Time Seen by Provider: 02/27/21 14:24 Source of Information: Reports: Patient - History of Present Illness INITIAL COMMENTS - FREE TEXT/NARRATIVE: 25-year-old female presents with slip and fall on the ice. She has some right- sided abdominal pain. She is 16 weeks . She did not hit her head or neck. Patient states she did not want to come in but the ambulance brought her in. - Related Data Allergies Allergy/AdvReac Type Severity Reaction Status Date / Time morphine Allergy Difficulty Verified 02/19/21 16:17 Breathing Penicillins Allergy Other Verified 02/19/21 16:17 Sulfa (Sulfonamide Allergy Difficulty Verified 02/19/21 16:17 Antibiotics) Breathing Home Meds: Home Meds . [No Known Home Meds] 02/14/21 [History] Past Medical History Cardiovascular History: Reports: None Respiratory History: Reports: Asthma Other Respiratory History: pt states she used to have an inhaler but doesnt know what it was and hasnt used one in years, only needs it for high intensity work outs. 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: Musculoskeletal History: Reports: None Neurological History: Reports: None Psychiatric History: Reports: Anxiety Endocrine/Metabolic History: Reports: None Hematologic History: Reports: None Immunologic History: Reports: None Oncologic (Cancer) History: Reports: None Dermatologic History: Reports: None - Infectious Disease History Infectious Disease History: Reports: None - Past Surgical History Head Surgeries/Procedures: Reports: None HEENT Surgical History: Reports: Oral Surgery Social & Family History - Family History Family Medical History: No Pertinent Family History Cardiac: Reports: Heart Failure Endocrine/Metabolic: Reports: Diabetes, type II - Caffeine Use Caffeine Use: Reports: Coffee, Soda Review of Systems - Review of Systems Review Of Systems: See Below Respiratory: Denies: Shortness of Breath Cardiovascular: Denies: Chest Pain GI/Abdominal: Reports: Abdominal Pain Genitourinary: Denies: Vaginal Bleeding Musculoskeletal: Reports: No Symptoms Skin: Reports: No Symptoms Neurological: Reports: No Symptoms ED EXAM, GENERAL - Physical Exam Exam: See Below Free Text/Narrative:: CONSTITUTIONAL: well appearing in no acute distress SKIN: Warm, dry, and intact without rash HENT: Normocephalic, atraumatic, PULMONARY: No increased respiratory rate. No rib tenderness no respiratory distress GASTROINTESTINAL: Patient presents to the right side of her abdomen where there is some discomfort. There is no bruising in this area. There is no tenderness to the right upper quadrant or left upper quadrant or right flank. The abdomen is benign. There is no tenderness to the area she points where she has having a little bit of pain NEUROLOGIC: normal speech, II-XII intact. light touch/5/5 power equal and symme tric in upper and lower extremities without deficit MUSCULOSKELETAL: no gross deformities, atraumatic PSYCHIATRIC: normal mood and affect Course - Vital Signs Text/Narrative:: Diagnosis: Placental abruption, placental hematoma, liver laceration, kidney laceration, pneumothorax, rib fracture, other Patient presents after slip and fall on ice. There is no overt traumatic injury. Patient is not having suprapubic tenderness and it is prior to the point of viability. Nothing further to do at this time. Supportive treatment with return precautions and HARVEST WORKER/PCP follow-up Departure - Departure Time of Disposition: 14:28 Disposition: Home, Self-Care 01 Condition: Good Clinical Impression: Fall - Discharge Information Instructions: Understanding Your Risk for Falls Additional Instructions: Return for shortness of breath, increased pain, vaginal bleeding, change or worsening condition or lack of improvement. He may use Tylenol for the discomfort. Follow-up with HARVEST WORKER and primary care doctor this week The following information is given to patients seen in the emergency department who are being discharged to home. This information is to outline your options for follow-up care. We provide all patients seen in our emergency department with a follow-up referral. The need for follow-up, as well as the timing and circumstances, are variable depending upon the specifics of your emergency department visit. If you don't have a primary care physician on staff, we will provide you with a referral. We always advise you to contact your personal physician following an emergency department visit to inform them of the circumstance of the visit and for follow-up with them and/or the need for any referrals to a consulting specialist. The emergency department will also refer you to a specialist when appropriate. This referral assures that you have the opportunity for follow-up care with a specialist. All of these measure are taken in an effort to provide you with optimal care, which includes your follow-up. Primary care clinics in the area: [facility] [address] [place] [address] [id number] [address] [address] Under all circumstances we always encourage you to contact your private physician who remains a resource for coordinating your care. When calling for follow-up care, please make the office aware that this follow-up is from your recent emergency room visit. If for any reason you are refused follow-up, please contact the [facility] Emergency Department at and asked to speak to the emergency department charge nurse.
== END 2021-02-27 14:44 | disposition home or self-care (01) ==
LOC: MW.ED 14:14
DX: O99.891 Other specified diseases and conditions complicating pregnancy (principal); R10.9 Unspecified abdominal pain; Z3A.16 16 weeks gestation of pregnancy; Z88.5 Allergy status to narcotic agent; Z88.0 Allergy status to penicillin; Z88.2 Allergy status to sulfonamides
CPT/HCPCS: 99283

== ENCOUNTER 2021-07-28 00:06 | Inpatient (IN) | payer MEDICAID ==
[2021-07-28] MEDS ORDERED: Misoprostol 200 MCG Tab PO PRN (00:52)
[2021-07-28] MEDS ORDERED: Lidocaine 1% 50 ML MDV INJECT PRN (00:52)
[2021-07-28] MEDS ORDERED: Sodium Chloride 0.9% 10 ML Syringe FLUSH PRN (00:52)
[2021-07-28] MEDS ORDERED: Methylergonovine 0.2 MG/1 ML Amp IM PRN (00:52)
[2021-07-28] MEDS ORDERED: Carboprost Tromethamine 250 MCG/1 ML Amp IM PRN (00:52)
[2021-07-28] MEDS ORDERED: Terbutaline 1 MG/ML SDV SUBCUT PRN (00:52)
[2021-07-28] MEDS ORDERED: Sodium Chloride 0.9% 20 ML SDV IV PRN (00:52)
[2021-07-28] MEDS ORDERED: Butorphanol 1 MG/ML SDV IVPUSH PRN (00:52)
[2021-07-28] MEDS ORDERED: Tranexamic Acid 1,000 MG in Sodium Chloride 0.9% 100 ML IV PRN (00:52)
[2021-07-28] MEDS ORDERED: Misoprostol 25 MCG (1/4 of 100 MCG) Tab VAG PRN (00:52)
[2021-07-28] MEDS ORDERED: Ondansetron 4 MG/2 ML SDV IVPUSH PRN (00:52)
[2021-07-28] MEDS ORDERED: Sodium Chloride 0.9% 2.5 ML Syringe FLUSH PRN (00:52)
[2021-07-28] MEDS ORDERED: Water For Irrigation,Sterile 1,000 ML Container IRR PRN (00:52)
[2021-07-28] MEDS ORDERED: Lactated Ringers 1,000 ML IV SCH (01:00)
[2021-07-28] MEDS ORDERED: Oxytocin/0.9 % Sodium Chloride 30 UNIT/500 ML BAG IV SCH ×2 (01:00)
[2021-07-28] MEDS ORDERED: Misoprostol 25 MCG (1/4 of 100 MCG) Tab PO ONE (01:23)
[2021-07-28] MEDS: Misoprostol 25 MCG (1/4 of 100 MCG) Tab PO PRN ×2 (05:58→10:12)
[2021-07-28] MEDS: Misoprostol 25 MCG (1/4 of 100 MCG) Tab VAG PRN ×2 (05:59→10:12)
[2021-07-28] MEDS ORDERED: ePHEDrine 50 MG/ML SDV IVPUSH PRN ×2 (08:19)
[2021-07-28] MEDS ORDERED: Ropivacaine HCl/PF 200 MG in Premix Bag 1 BAG EPIDUR SCH (08:30)
[2021-07-28] MEDS ORDERED: Ibuprofen 400 MG Tab PO PRN (15:59)
[2021-07-28] MEDS ORDERED: Ibuprofen 800 MG Tab PO PRN (15:59)
[2021-07-28] MEDS ORDERED: Acetaminophen 500 MG Tab PO PRN ×2 (15:59)
[2021-07-28] MEDS ORDERED: Docusate Sodium 100 MG Cap PO PRN (15:59)
[2021-07-28] MEDS ORDERED: Lanolin 100% Cream 7 GM Tube TOP PRN (15:59)
[2021-07-28] MEDS ORDERED: Benzocaine/Menthol 20%-0.5% Spray 78 GM Cannister TOP PRN (15:59)
[2021-07-28] MEDS ORDERED: Bisacodyl 10 MG Supp RECTAL PRN (15:59)
[2021-07-28] MEDS ORDERED: oxyCODONE 5 MG Tab PO PRN (15:59)
[2021-07-28] MEDS: Witch Hazel Medicated Pads 40/Jar TOP PRN (17:43)
[2021-07-29] MEDS: Witch Hazel Medicated Pads 40/Jar TOP PRN (17:38)
== END 2021-07-29 18:11 | disposition home or self-care (01) | DRG 807 ==
LOC: MW.OBCHECK 00:06 → MW.OB 00:14 → MW.OBCHECK 00:58 → OBSVTOIN 15:42 → MW.OB 17:49
PROVIDERS: ADMIT Obstetrics & Gynecology Obstetrics; ATTEND Obstetrics & Gynecology Obstetrics
PROC: 10E0XZZ Delivery of Products of Conception, External Approach (ICD-10-PCS; principal; 2021-07-28)
PROC: 3E0P7VZ Introduction of Hormone into Female Reproductive, Via Natural or Artificial Opening (ICD-10-PCS; 2021-07-28)
PROC: 10907ZC Drainage of Amniotic Fluid, Therapeutic from Products of Conception, Via Natural or Artificial Opening (ICD-10-PCS; 2021-07-28)
PROC: 0HQ9XZZ Repair Perineum Skin, External Approach (ICD-10-PCS; 2021-07-28)
DX: O62.3 Precipitate labor (principal); Z37.0 Single live birth; Z3A.39 39 weeks gestation of pregnancy; O70.0 First degree perineal laceration during delivery; Z20.822 Contact with and (suspected) exposure to COVID-19
CPT/HCPCS: 36415; 59025; 59409; 80305-QW; 85014; 85018; 85027; 86592; 86850; 86900; 86901; A9270-GY; J0595; J2001; J2590; J7120; U0002